=== PATIENT | female | born 2000 | race Caucasian/White ===

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

== ENCOUNTER → 2024-08-22 | Outpatient (CLI) | payer SELFPAY ==
[2024-08-22 14:22] VITALS: BP 123/84; PULSE 102; RESP 16; TEMP 98
--- NOTE | 2024-08-22 15:07 | P.SLEEP ---
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 Her symptoms been going on for the past 2 years. The patient does night shifts and she works around 3 to 4 days a week. Her shift is from 7 PM till 7 AM. Upon arriving home, she goes to bed between 9 and 10 AM and she gets out of bed at 4 PM. She thinks that she is averaging around 6 to 7 hours of sleep. On those days off, the patient goes to bed at around 10 to 11 PM and she wakes up 8 to 9 AM in the morning. Her sleep is fragmented. She is not sure if she snores. However, she denies waking up choking or gasping for air. She has a dry mouth in the morning. She has exces sive restlessness in her lower extremities and the patient has constant discomfort making her move her legs to relieve her symptoms. No grinding of the teeth. No nocturia. No anxiety. No depression. No nocturnal heartburn or chest pain or shortness of breath. Despite this increased fatigue and sleepiness, the patient has been functional at work. She does not fall asleep during working hours. She does not positive while driving. Also of any motor vehicle accident because of feeling drowsy or sleepy. Her weight has remained stable over the past 5 years. She is currently living with her parents. No history of substance abuse. No history of alcoholism. She drinks alcohol socially. No history of smoking. Comorbidities include type 1 diabetes mellitus and the patient reports adequate blood sugar control on insulin. 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 The patient had dry mouth and eyes and the serologic markers were positive and the patient was started on Plaquenil. No active arthritis. 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 No sleep paralysis. No hallucinations. No cataplexy. No night terrors. She has increased sweating throughout the day and at nighttime. Review of Systems Constitutional: Reports daytime sleepiness, Reports fatigue Eyes: denies as per HPI, denies blurred vision, denies bulging eye, denies decreased vision, denies diplopia, denies discharge, denies dry eye, denies irritation, denies itching, denies pain, denies photophobia, denies loss of peripheral vision, denies loss of vision, denies tunnel vision/blind spots Ears: deny: decreased hearing, ear discharge, earache, tinnitus Ears, nose, mouth and throat: Reports as per HPI Breasts: absent: as per HPI, change in shape, gynecomastia, masses, nipple discharge, pain, skin changes, swelling Cardiovascular: Reports as per HPI Respiratory: Reports as per HPI Gastrointestinal: Reports as per HPI Genitourinary: Reports as per HPI Menstruation: Reports as per HPI Musculoskeletal: Reports as per HPI (Restlessness involving the lower extremities) Musculoskeletal: absent: ankle pain, ankle stiffness, ankle swelling, as per HPI, elbow pain, elbow stiffness, elbow swelling, foot pain, foot stiffness, foot swelling, hand pain, hand stiffness, hand swelling, hip pain, hip stiffn ess, hip swelling, knee pain, knee stiffness, knee swelling, shoulder pain, shoulder stiffness, shoulder swelling, wrist pain, wrist stiffness, wrist swelling Integumentary: Reports wounds Neurological: Reports as per HPI Psychiatric: Reports as per HPI Endocrine: Reports as per HPI, Reports fatigue Hematologic/Lymphatic: Reports as per HPI Allergic/Immunologic: Reports as per HPI Past Medical History Past Medical History: Diabetes Mellitus Additional Past Medical History / Comment(s): NLD autoimmune that cause ulcerations on lower legs from inside out. and Darier's thickened darker pigment under arms; Bunions, restless legs. Sjogren's disease History of Any Multi-Drug Resistant Organisms: None Reported Past Surgical History: Orthopedic Surgery Additional Past Surgical History / Comment(s): rt knee Past Anesthesia/Blood Transfusion Reactions: No Reported Reaction Additional Past Anesthesia/Blood Transfusion Reaction / Comment(s): no surgery Past Psychological History: Anxiety Additional Psychological History / Comment(s): re needles, iv etc Smoking Status: Never smoker Past Alcohol Use History: None Reported Past Drug Use History: None Reported - Past Family History Mother Family Medical History: Cancer, Hyperlipidemia Additional Family Medical History / Comment(s): melanoma Father Family Medical History: GERD/Reflux, Hypertension, Sleep Apnea/CPAP/BIPAP Additional Family Medical History / Comment(s): snoring, restless legs Sister(s) Family Medical History: Thyroid Disorder Medications and Allergies Home Medications Medication Instructions Recorded Confirmed Type Insulin Aspart (For Pump) [NovoLOG 0.01 unit SQ-PUMP CONTINUOUS 05/05/16 08/22/24 History (For Pump)] Quartette 1 tab PO DAILY 03/03/17 03/11/17 History Acetaminophen-Codeine 300-30mg 1 tab PO Q8H PRN #30 tablet 03/11/17 Rx [Tylenol #3] Ibuprofen 600 mg PO Q6HR PRN #30 tablet 03/11/17 08/22/24 Rx Hydroxychloroquine Sulfate See Rx Instructions .ROUTE .COMPLEX 08/22/24 08/22/24 History [Plaquenil] Insulin Aspart [NovoLOG] See Rx Instructions .ROUTE .COMPLEX 08/22/24 History Allergies Allergy/AdvReac Type Severity Reaction Status Date / Time No Known Allergies Allergy Verified 03/03/17 13:03 Physical Exam Vitals: Vital Signs Temp Pulse Resp BP Pulse Ox 08/22/24 14:21 98 F 102 H 16 123/84 99 Intake and Output 08/21/24 08/22/24 08/22/24 22:59 06:59 14:59 Other: Weight 71.668 kg The patient appeared well nourished and normally developed. Vital signs as documented. Body mass index is 28 Head exam is unremarkable. No scleral icterus or corneal arcus noted. Neck is without jugular venous distension, thyromegaly, or carotid bruits. Carotid upstrokes are brisk bilaterally. Mallampati class IV with crowding of the posterior pharynx Lungs are clear to auscultation and percussion. Cardiac exam reveals the PMI to be normally sized and situated. Rhythm is regular. First and second heart sounds normal. No murmurs, rubs or gallops. Abdominal exam reveals normal bowel sounds, no masses, no organomegaly and no aortic enlargement. Extremities are nonedematous and both femoral and pedal pulses are normal. Examination of the skin revealed no evidence of significant rashes, suspicious appearing nevi or other concerning lesions. Neurologically, the patient is awake and alert and the patient does not have any focal neurological deficit. Cranial nerves are essentially intact. Assessment and Plan Plan: Excessive fatigue with limited sleepiness and the patient carries an [place] score of 8. Patient is currently under investigation. The patient is a manufacturing shift supervisor worker. The patient does not have the typical features of obstructive sleep apnea. However, sleep apnea obviously remains an ongoing concern. In addition, the patient has other comorbidities including diabetes mellitus type 1 and Sjogren's disease and she has excessive restlessness in lower extremities bilaterally. This could be attributed to neuropathy related to diabetes/Sjogren. Otherwise, her sleep schedule is disrupted because of her manufacturing shift supervisor work and she has good sleep hygiene measures. Diabetes mellitus type 1 Sjogren's disease on Plaquenil Restlessness in lower extremities, possible underlying peripheral neuropathy related to comorbidities Necrobiosis lymphoid Diabeticorum Plan Will investigate the patient's symptoms further and the patient will need a polysomnography to evaluate her sleep quality, sleep architecture and maintenance. The patient will be asked to come into the sleep center to complete the PSG. This will be a nighttime study. Continue same medications Will make further recommendations based on the results of the sleep study. Time with Patient: Greater than 30 Sleep Note - Sleep Data ESS Total: 8 - Sleep Note Sleep Note: Temperature: 98 F Pulse Rate: 102 Respiratory Rate: 16 Blood Pressure: 123/84 SpO2: 99 Height: 5 ft 3 in Weight: 71.668 kg BMI: Neck Circumference: 14.2
== END ==
LOC: 3 N SLEEP 14:04
PROVIDERS: ATTEND Internal Medicine Critical Care Medicine
DX: G47.33 Obstructive sleep apnea (adult) (pediatric) (principal); E10.9 Type 1 diabetes mellitus without complications; M35.00 Sjogren syndrome, unspecified; R45.1 Restlessness and agitation; R68.89 Other general symptoms and signs
CPT/HCPCS: 99202